=== PATIENT | male | born 1960 | race Caucasian/White ===

== ENCOUNTER 2016-11-30 02:18 | Emergency (ER) | payer SELFPAY ==
[~2016-11-30] VITALS: Ht 167.6 cm; Wt 78.5 kg
[~2016-11-30 02:18] MED LIST: DENIES
[2016-11-30 02:27] VITALS: Ht 167.6 cm; Wt 78.5 kg
== END 2016-11-30 03:00 | disposition left against medical advice (07) ==
LOC: FTE 02:18
DX: Z53.21 Procedure and treatment not carried out due to patient leaving prior to being seen by health care provider (principal)